=== PATIENT | female | born 1955 | race Caucasian/White ===

== ENCOUNTER 2018-02-05 12:45 | Outpatient (CLI) | payer OTHER ==
[2018-02-05 15:09] LABS: Hemoglobin 13.6 g/dL (12.0-16.0); Mean Corpuscular HGB CONC 34.3 g/dL (32.0-36.0); Mean Corpuscular Hemoglobin 33.5 pg (27.0-31.0); Mean Corpuscular Volume 97.7 fL (78.0-98.0); Mean Platelet Volume 8.6 fL (7.4-10.4); Platelet Count 232 thou/uL (130-400); RBC Distribution Width 11.6 % (11.5-14.5); Red Blood Cell (RBC) Count 4.06 mill/uL (4.20-5.40); White Blood Cell (WBC) Count 7.5 thou/uL (4.8-10.8)
[2018-02-05 15:14] LABS: Bilirubin Negative (Negative); Blood, Urine Negative (Negative); Clarity CLEAR (Clear); Glucose, Urine (Dipstick) Negative (Negative); Leukocyte Negative (Negative); Nitrite Negative (Negative); Protein, Urine (Dipstick) Negative (Neg-Trace); Specific Gravity, Urine 1.008 (1.002-1.036); Urobilinogen 0.2 mg/dL (0.2-1.0); pH, Urine 6.5 (5.0-9.0)
[2018-02-05 15:15] LABS: INR-International Normal Ratio 0.9; Prothrombin Time 12.7 SEC (12.0-14.7)
[2018-02-05 15:16] LABS: PTT 30.3 SEC (22.9-36.1)
[2018-02-05 15:17] LABS: Bacteria/HPF None Seen HPF (None Seen); Hyaline Casts/LPF 0-3 HYALINE CAST LPF (0-3 Hyaline); RBC/HPF 0-3 HPF (0-3); Squamous Epithelial None Seen HPF (0-3); WBC/HPF None Seen HPF (0-3)
[2018-02-05 15:32] LABS: Anion Gap 14 mmol/L (10-20); BUN (Urea Nitrogen) 23 mg/dL (9.8-20.1); Calc. Creatinine Clearance 0 mL/min (70-130); Calcium 9.9 mg/dL (7.8-10.44); Carbon Dioxide 31 mmol/L (23-31); Chloride 98 mmol/L (98-107); Estimated GFR-MDRD 61; Glucose 119 mg/dL (80-115); Sodium 139 mmol/L (136-145)
== END 2018-02-05 12:46 | disposition home or self-care (01) ==
LOC: LABBT 12:45
PROVIDERS: ATTEND Orthopaedic Surgery
DX: Z01.818 Encounter for other preprocedural examination (principal); M16.11 Unilateral primary osteoarthritis, right hip
CPT/HCPCS: 80048; 81001; 85027; 85610; 85730; 86850; 86900; 86901; 87081; 93005; 93010

== ENCOUNTER 2018-02-05 15:15 | Inpatient (IN) | payer OTHER ==
[2018-02-05 13:09] VITALS: BMI 39.1
[2018-02-10] MEDS ORDERED: Vancomycin HCl 1.5 GM in Sodium Chloride 0.9% 250 ML 300 ML IVPB SCH ×2 (06:00→18:00)
[2018-02-10] MEDS ORDERED: Midazolam HCl 2 mg/2 ml Vial ONE (06:19)
[2018-02-10] MEDS ORDERED: Fentanyl 100 MCG/2 ML VIAL ONE (06:19)
[2018-02-10] MEDS ORDERED: CEFAZOLIN/Water 2 GM/20 ML SYRINGE ONE (06:26)
[2018-02-10] MEDS ORDERED: Sodium Chloride 0.9% 100 ML ONE (06:26)
[2018-02-10] MEDS ORDERED: Lidocaine 2% Jelly 5 ML TUBE ONE (07:11)
[2018-02-10] MEDS ORDERED: Ropivacaine 0.2% HCl/PF 20 ML ONE ×2 (07:11→09:21)
[2018-02-10] MEDS ORDERED: Naloxone HCl 0.4 mg/ml Vial IVP PRN (07:15)
[2018-02-10] MEDS ORDERED: Promethazine HCl 25 MG SUPP PR PRN (07:15)
[2018-02-10] MEDS ORDERED: HYDROcodone/Acetaminophen 5/325 mg Tablet PO PRN ×2 (07:15)
[2018-02-10] MEDS ORDERED: Zolpidem Tartrate 5 MG TAB PO PRN ×2 (07:15→10:23)
[2018-02-10] MEDS ORDERED: Ondansetron HCl/PF 4 MG/2 ML Vial IVP PRN ×3 (07:15→10:23)
[2018-02-10] MEDS ORDERED: diphenhydrAMINE 50 MG/ML VIAL IVP PRN (07:15)
[2018-02-10] MEDS ORDERED: Hydrocerin (Eucerin) Cream 120 gm Jar TOP PRN (07:15)
[2018-02-10] MEDS ORDERED: Naloxone HCl 0.4 mg/ml Vial IV PRN (07:15)
[2018-02-10] MEDS ORDERED: diphenhydrAMINE 50 MG/ML VIAL IM PRN (07:15)
[2018-02-10] MEDS ORDERED: Bupivacaine 0.25% 10 ML VIAL EPIDURAL PRN (07:15)
[2018-02-10] MEDS ORDERED: fentaNYL Citrate/PF 1,250 MCG, Bupivacaine 25 ML in Sodium Chloride 0.9% 250 ML 200 ML EPIDURAL SCH (07:15)
[2018-02-10] MEDS ORDERED: diphenhydrAMINE 25 MG CAP PO PRN ×2 (07:15→10:23)
[2018-02-10] MEDS ORDERED: traMADol HCl 50 MG TAB PO PRN ×2 (07:15→10:23)
[2018-02-10] MEDS ORDERED: Promethazine HCl 25 MG/ML VIAL IM PRN ×3 (07:15→10:23)
[2018-02-10] MEDS ORDERED: Phenylephrine HCL 10 MG/ML VIAL ONE (07:17)
[2018-02-10] MEDS ORDERED: Promethazine HCl 25 MG/ML VIAL SLOW IVP PRN (09:29)
[2018-02-10] MEDS ORDERED: Tranexamic Acid 1,000 MG in Sodium Chloride 0.9% 100 ML IVPB SCH (09:45)
[2018-02-10] MEDS ORDERED: CEFAZOLIN/Water 2 GM/20 ML SYRINGE SLOW IVP SCH (10:23)
[2018-02-10] MEDS ORDERED: Acetaminophen 325 MG TAB PO PRN (10:23)
[2018-02-10] MEDS ORDERED: Aspirin 81 mg Enteric Coated Tablet PO SCH ×2 (10:23→11:00)
[2018-02-10] MEDS ORDERED: Multivitamin W/ Minerals 1 TAB PO SCH (10:23)
[2018-02-10] MEDS ORDERED: HYDROcodone/Acetaminophen 10/325 mg Tablet PO PRN ×2 (10:23)
[2018-02-10] MEDS ORDERED: Fentanyl 100 MCG/2 ML VIAL SLOW IVP PRN ×2 (10:23)
[2018-02-10] MEDS ORDERED: Senokot S 8.6-50 MG TAB PO SCH (10:23)
--- NOTE | 2018-02-10 11:12 | RAD ---
RIGHT HIP TWO VIEWS: HISTORY: Postop total hip. COMPARISON: None. FINDINGS: Satisfactory postoperative appearance. Expected postoperative gas and edema. IMPRESSION: Satisfactory postoperative appearance. POS: [facility]
[2018-02-10] MEDS: Sodium Chloride 0.9% 1,000 ML IV SCH ×2 (11:35→23:34)
--- NOTE | 2018-02-10 12:26 | OP ---
DATE OF PROCEDURE: 02/10/2018 PREOPERATIVE DIAGNOSIS: Right hip osteoarthritis. POSTOPERATIVE DIAGNOSIS: Right hip osteoarthritis. PROCEDURE PERFORMED: Right total hip arthroplasty. STAFF: Talat Manuel M.D. HEMODIALYSIS RN: Viktoriya Baeza PA-C ANESTHESIA: General endotracheal intubation with an epidural. ESTIMATED BLOOD LOSS: 250 mL. TOURNIQUET TIME: None. IMPLANTS: A Hubert Accolade TMZF size 4.5, 130 degree angle, Trident acetabular cluster shell 52 mm E, Trident X3 10 degree poly, 36 mm E and a Biolox delta ceramic head, 36 mm -5. ANTIBIOTICS: Ancef 2 grams, vancomycin 1.5, TXA 1 gram. COMPLICATIONS: None. HISTORY OF PRESENT ILLNESS: Ms. Dorman is a 62-year-old female who presented with a right hip osteoa rthritis. The patient states the pain was severe, she could no longer ambulate. The pain was seriou s and she desired surgical intervention. I discussed with the patient the risks and benefits of surg eliceo to include pain, scar, bleeding, infection, damage to vital structures, decreased range of motion or strength, need for further surgical intervention. Damage to vital structures, loss of life or li mb. The patient understood these risks and benefits and elected to proceed. PROCEDURE IN DETAIL: Timeout was completed designating the patient's right lower extremity as the op erative site based on site, consents, markings. The patient's right lower extremity was prepped and draped in sterile fashion. The patient was in lateral decubitus position with bony prominences well padded. After timeout performed procedure began. Again, we began our procedure with a lateral skin incision down through a very deep layer of fat using drills and moderate retractors. The IT band req uired 2 initial incisions for retraction. We came down the patient's gluteus medius. We took down t he gluteus medius tenotomy, found that there was tearing already of the gluteus minimus on the unders urface, which could explain some of the patient's limp. We followed down, excised the patient's caps ule, came down on the patient's neck and dislocated the head, made our femoral cut, removed the head, exposed the acetabulum, removed the labrum. After placing retractors anterior and posterior we ream ed, reamed up to a 52 and placed a 52 mm PSL which was well medialized and well seated, placed our T rident poly rotated in position. We then moved to our femoral neck. I cut a short femoral neck, had about half a fingerbreadth of 5-6 mm to the lesser. I broached up to a 4, trialed and decided to go with a 4.5, I had to place the final stem into position 4.5/-5, reduced the hip. The patient had a good overall range of motion. She did not dislocate. The patient had a good shuck, just some minima l shuck was actually difficult to reduce, had overall good alignment. We then washed. We then close d the gluteus minimus ____ we could distally closed the gluteus medius with #2 Vicryl. Closed the IT band with #2 Vicryl, 2 Quill, 0 Quill. We did 0 Quill, 0 Vicryl subcu to close the fat layers in se quential layer and then placed 0 Quill subcu, 2-0 Quill, and then glue. The patient will be admitted to hospital. She will be followed in-house. We will again discuss with the patient preoperatively the risks and benefits of smoking. She understood the risks and benefits . The patient will be followed in-house per [place] protocol.
[2018-02-10] MEDS: CEFAZOLIN/Water 2 GM/20 ML SYRINGE SLOW IVP SCH ×2 (14:40→21:32)
[2018-02-10] MEDS ORDERED: PHENYLEPHRINE-NS 100 MCG/ML 10 ML SYRINGE ONE (16:53)
[2018-02-10] MEDS ORDERED: PROPOFOL 200 MG/20 ML VIAL ONE (16:53)
[2018-02-10] MEDS ORDERED: Ondansetron HCl/PF 4 MG/2 ML Vial ONE (16:53)
[2018-02-10] MEDS ORDERED: Dexamethasone 20 MG/5 ML VIAL ONE (16:53)
[2018-02-10] MEDS ORDERED: ePHEDrine/0.9% NaCl/PF SYRINGE 50 mg/10 ml ONE (16:53)
[2018-02-10] MEDS ORDERED: Glycopyrrolate 0.2 MG/ML 5 ML SYRINGE ONE (16:53)
[2018-02-10] MEDS: Ferrous Gluconate 324 MG TAB PO SCH (21:31)
[2018-02-10] MEDS: Aspirin 81 mg Enteric Coated Tablet PO SCH (21:31)
[2018-02-10] MEDS: Atorvastatin Calcium 10 MG TAB PO SCH (21:31)
[2018-02-10] MEDS: Senokot S 8.6-50 MG TAB PO SCH (21:31)
--- NOTE | 2018-02-10 22:03 | PDOC.PN ---
- Subjective Encounter Start Date: 02/10/18 Encounter Start Time: 18:30 Patient seen and examined for med mngt. No CP/SOB/N/V/focal deficits. Pain controlled. No other complaints. - Objective MAR Reviewed: Yes Vital Signs & Weight: Vital Signs (12 hours) Temp Pulse Resp BP BP Pulse Ox 02/10/18 20:41 99.2 F 69 18 110/68 95 02/10/18 12:01 97.4 F L 60 16 114/70 98 02/10/18 10:40 97.4 F L 60 16 97/63 98 Weight Weight 235 lb I&O: 02/09/18 02/10/18 02/11/18 06:59 06:59 06:59 Intake Total 1140 Output Total 350 Balance 790 Result Diagrams: 02/11/18 04:47 Additional Labs: Laboratory Tests 02/05/18 14:00 Potassium 4.0 BUN 23 H Creatinine 0.93 EKG Reviewed by me: Yes (SR) Phys Exam - Physical Examination Constitutional: NAD Respiratory: no wheezing, no rhonchi Cardiovascular: RRR, no rub Gastrointestinal: soft, non-tender, positive bowel sounds Musculoskeletal: no edema Neurological: moves all 4 limbs Dx/Plan - Plan PT/OT, DVT proph w/SCDs IMPRESSION: 1. HTN 2. Obesity BMI 39.1 3. Anxiety/Depression 4. CKD 2 5. HLD PLAN: Hold Lisinopril/HCTZ for now Cont Paxil/Statins HH in AM Will follow. Full code. DPOA- spouse. Review of Systems - Review of Systems Respiratory: negative: Cough, Dry, Shortness of Breath, Hemoptysis, SOB with Excertion, Pleuritic Pain, Sputum, Wheezing Cardiovascular: negative: chest pain, palpitations, orthopnea, paroxysmal nocturnal dyspnea, edema, light headedness, other Gastrointestinal: negative: Nausea, Vomiting, Abdominal Pain, Diarrhea, Constipation, Melena, Hematochezia, Other - Medications/Allergies Allergies/Adverse Reactions: Allergies Allergy/AdvReac Type Severity Reaction Status Date / Time ibuprofen [From Motrin] Allergy Mild Verified 02/05/18 13:10 Medications: Current Medications Acetaminophen (Tylenol) 650 mg PO Q4H PRN PRN Reason: CRAW[place]/ T > 101F; Mild Pain (1-3) Hydrocodone Bitart/Acetaminophen ([place] 5/325) 1 tab PO Q4H PRN PRN Reason: Mild Pain 0-3 Hydrocodone Bitart/Acetaminophen ([place] 5/325) 2 tab PO Q4H PRN PRN Reason: For Moderate Pain 4-6 Aspirin (Ecotrin) 81 mg PO BID [facility] Last Admin: 02/10/18 21:31 Dose: 81 mg Atorvastatin Calcium (Lipitor) 10 mg PO HS [facility] Last Admin: 02/10/18 21:31 Dose: 10 mg Diphenhydramine HCl (Benadryl) 25 mg PO Q3H PRN PRN Reason: Itching Diphenhydramine HCl (Benadryl) 25 mg IM Q3H PRN PRN Reason: Itching Diphenhydramine HCl (Benadryl) 25 mg IVP Q3H PRN PRN Reason: Itching Emollient Cream (Hydrocerin Cream) 0 gm TOP PRN PRN PRN Reason: Itching Ferrous Gluconate (Fergon) 324 mg PO BID [facility] Last Admin: 02/10/18 21:31 Dose: 324 mg Fentanyl Citrate 1,250 mcg/Bupivacaine HCl 25 ml/ Sodium Chloride 250 mls @ 0 mls/hr EPIDURAL INF [facility] Sodium Chloride (Normal Saline 0.9%) 1,000 mls @ 100 mls/hr IV .Q10H [facility] Last Admin: 02/10/18 11:35 Dose: Not Given Iron/Minerals/Multivitamins (Theragran M) 1 tab PO DAILY [facility] Miscellaneous Information (Communication Order-Pharmacy) 1 each FS ASDIR [facility] Naloxone HCl (Narcan) 0.2 mg IV Q5MIN PRN PRN Reason: RR <=8 OR OBTUNDED/UNAROUSABLE Naloxone HCl (Narcan) 0.1 mg IVP Q15MIN PRN PRN Reason: URINARY RETENTION Ondansetron HCl (Zofran) 4 mg IVP Q6H PRN PRN Reason: Nausea/Vomiting Paroxetine HCl (Paxil) 20 mg PO DAILY [facility] Promethazine HCl (Phenergan) 12.5 mg IM Q4H PRN PRN Reason: Nausea Promethazine HCl (Phenergan Suppository) 25 mg [place] Q4H PRN PRN Reason: Nausea/Vomiting Senna/Docusate Sodium (Senokot S) 2 tab PO BID [facility] Last Admin: 02/10/18 21:31 Dose: 2 tab Sodium Chloride (Flush - Normal Saline) 10 ml IVF Q12HR [facility] Last Admin: 02/10/18 21:31 Dose: Not Given Sodium Chloride (Flush - Normal Saline) 10 ml IVF PRN PRN PRN Reason: Saline Flush Tramadol HCl (Ultram) 50 mg PO Q6H PRN PRN Reason: Mild Pain 1-3 Tramadol HCl (Ultram) 100 mg PO Q6H PRN PRN Reason: Moderate Pain 4-6 Zolpidem Tartrate (Ambien) 5 mg PO HSPRN PRN PRN Reason: Insomnia
[2018-02-11] MEDS: Sodium Chloride 0.9% 1,000 ML IV SCH ×2 (03:16→16:21)
[2018-02-11 05:16] LABS: Hemoglobin 10.4 g/dL (12.0-16.0); Mean Corpuscular HGB CONC 32.9 g/dL (32.0-36.0); Mean Corpuscular Hemoglobin 32.4 pg (27.0-31.0); Mean Corpuscular Volume 98.5 fL (78.0-98.0); Mean Platelet Volume 8.3 fL (7.4-10.4); Platelet Count 190 thou/uL (130-400); RBC Distribution Width 11.4 % (11.5-14.5); Red Blood Cell (RBC) Count 3.21 mill/uL (4.20-5.40)
[2018-02-11] MEDS: Aspirin 81 mg Enteric Coated Tablet PO SCH ×2 (08:14→20:12)
[2018-02-11] MEDS: Multivitamin W/ Minerals 1 TAB PO SCH (08:14)
[2018-02-11] MEDS: PARoxetine 20 MG TAB PO SCH (08:14)
[2018-02-11] MEDS: Senokot S 8.6-50 MG TAB PO SCH ×2 (08:14→20:12)
[2018-02-11] MEDS: Ferrous Gluconate 324 MG TAB PO SCH ×2 (08:15→20:12)
[2018-02-11] MEDS ORDERED: Non-Formulary Item 1 EACH (Lovastatin [Lovastatin] 40 MG) PO SCH (09:00)
[2018-02-11] MEDS: Atorvastatin Calcium 10 MG TAB PO SCH (20:12)
--- NOTE | 2018-02-11 23:09 | PDOC.PN ---
- Subjective Encounter Start Date: 02/11/18 Encounter Start Time: 15:30 Patient seen and examined for med mgnt. BP on lower side with poor urine output per RN. Some nausea earlier - now resolved. No other complaints. No overnight events - Objective MAR Reviewed: Yes Vital Signs & Weight: Vital Signs (12 hours) Temp Pulse Resp BP Pulse Ox 02/11/18 20:19 98.6 F 84 16 115/73 95 02/11/18 20:00 95 02/11/18 15:36 98.9 F 83 16 108/62 96 Weight Admit Weight 235 lb Weight 235 lb I&O: 02/10/18 02/11/18 02/12/18 06:59 06:59 06:59 Intake Total 2085 1550 Output Total 725 625 Balance 1360 925 Result Diagrams: 02/11/18 04:47 Phys Exam - Physical Examination Constitutional: NAD Respiratory: no wheezing, no rhonchi Cardiovascular: RRR, no rub Gastrointestinal: soft, non-tender, positive bowel sounds Musculoskeletal: no edema Neurological: moves all 4 limbs Dx/Plan - Plan DVT proph w/SCDs IMPRESSION: 1. HTN 2. Obesity BMI 39.1 3. Anxiety/Depression 4. CKD 2 5. HLD PLAN: BMP in AM Gentle IV hydration Lisinopril/HCTZ on hold Cont other meds as below Review of Systems - Review of Systems Cardiovascular: negative: chest pain, palpitations, orthopnea, paroxysmal nocturnal dyspnea, edema, light headedness, other Gastrointestinal: negative: Nausea, Vomiting, Abdominal Pain, Diarrhea, Constipation, Melena, Hematochezia, Other - Medications/Allergies Allergies/Adverse Reactions: Allergies Allergy/AdvReac Type Severity Reaction Status Date / Time ibuprofen [From Motrin] Allergy Mild Verified 02/05/18 13:10 Medications: Current Medications Acetaminophen (Tylenol) 650 mg PO Q4H PRN PRN Reason: [place]/ T > 101F; Mild Pain (1-3) Hydrocodone Bitart/Acetaminophen ([place] 5/325) 1 tab PO Q4H PRN PRN Reason: Mild Pain 0-3 Hydrocodone Bitart/Acetaminophen ([place] 5/325) 2 tab PO Q4H PRN PRN Reason: For Moderate Pain 4-6 Last Admin: 02/11/18 08:15 Dose: 2 tab Aspirin (Ecotrin) 81 mg PO BID [facility] Last Admin: 02/11/18 20:12 Dose: 81 mg Atorvastatin Calcium (Lipitor) 10 mg PO HS [facility] Last Admin: 02/11/18 20:12 Dose: 10 mg Diphenhydramine HCl (Benadryl) 25 mg PO Q3H PRN PRN Reason: Itching Diphenhydramine HCl (Benadryl) 25 mg IM Q3H PRN PRN Reason: Itching Diphenhydramine HCl (Benadryl) 25 mg IVP Q3H PRN PRN Reason: Itching Emollient Cream (Hydrocerin Cream) 0 gm TOP PRN PRN PRN Reason: Itching Ferrous Gluconate (Fergon) 324 mg PO BID [facility] Last Admin: 02/11/18 20:12 Dose: 324 mg Fentanyl Citrate 1,250 mcg/Bupivacaine HCl 25 ml/ Sodium Chloride 250 mls @ 0 mls/hr EPIDURAL INF [facility] Sodium Chloride (Normal Saline 0.9%) 1,000 mls @ 100 mls/hr IV .Q10H [facility] Last Admin: 02/11/18 16:21 Dose: 1,000 mls Iron/Minerals/Multivitamins (Theragran M) 1 tab PO DAILY [facility] Last Admin: 02/11/18 08:14 Dose: 1 tab Miscellaneous Information (Communication Order-Pharmacy) 1 each FS ASDIR [facility] Naloxone HCl (Narcan) 0.2 mg IV Q5MIN PRN PRN Reason: RR <=8 OR OBTUNDED/UNAROUSABLE Naloxone HCl (Narcan) 0.1 mg IVP Q15MIN PRN PRN Reason: URINARY RETENTION Ondansetron HCl (Zofran) 4 mg IVP Q6H PRN PRN Reason: Nausea/Vomiting Last Admin: 02/11/18 10:34 Dose: 4 mg Paroxetine HCl (Paxil) 20 mg PO DAILY [facility] Last Admin: 02/11/18 08:14 Dose: 20 mg Promethazine HCl (Phenergan) 12.5 mg IM Q4H PRN PRN Reason: Nausea Last Admin: 02/11/18 12:03 Dose: 12.5 mg Promethazine HCl (Phenergan Suppository) 25 mg SD Q4H PRN PRN Reason: Nausea/Vomiting Senna/Docusate Sodium (Senokot S) 2 tab PO BID [facility] Last Admin: 02/11/18 20:12 Dose: 2 tab Sodium Chloride (Flush - Normal Saline) 10 ml IVF Q12HR [facility] Last Admin: 02/11/18 22:31 Dose: Not Given Sodium Chloride (Flush - Normal Saline) 10 ml IVF PRN PRN PRN Reason: Saline Flush Tramadol HCl (Ultram) 50 mg PO Q6H PRN PRN Reason: Mild Pain 1-3 Tramadol HCl (Ultram) 100 mg PO Q6H PRN PRN Reason: Moderate Pain 4-6 Zolpidem Tartrate (Ambien) 5 mg PO HSPRN PRN PRN Reason: Insomnia
[2018-02-12] MEDS: Sodium Chloride 0.9% 1,000 ML IV SCH ×2 (03:03→13:42)
[2018-02-12 05:18] LABS: Hemoglobin 9.2 g/dL (12.0-16.0); Mean Corpuscular HGB CONC 32.8 g/dL (32.0-36.0); Mean Corpuscular Hemoglobin 32.3 pg (27.0-31.0); Mean Corpuscular Volume 98.4 fL (78.0-98.0); Mean Platelet Volume 8.5 fL (7.4-10.4); Platelet Count 173 thou/uL (130-400); RBC Distribution Width 11.5 % (11.5-14.5); Red Blood Cell (RBC) Count 2.85 mill/uL (4.20-5.40); White Blood Cell (WBC) Count 11.5 thou/uL (4.8-10.8)
[2018-02-12 05:26] LABS: Anion Gap 9 mmol/L (10-20); BUN (Urea Nitrogen) 20 mg/dL (9.8-20.1); Calc. Creatinine Clearance 126 mL/min (70-130); Calcium 8.8 mg/dL (7.8-10.44); Carbon Dioxide 28 mmol/L (23-31); Chloride 100 mmol/L (98-107); Estimated GFR-MDRD 75; Glucose 113 mg/dL (80-115); Magnesium 1.7 mg/dL (1.6-2.6); Potassium 3.7 mmol/L (3.5-5.1); Sodium 133 mmol/L (136-145)
[2018-02-12] MEDS: Ferrous Gluconate 324 MG TAB PO SCH (08:46)
[2018-02-12] MEDS: traMADol HCl 50 MG TAB PO PRN ×2 (08:46→13:40)
[2018-02-12] MEDS: PARoxetine 20 MG TAB PO SCH (08:47)
[2018-02-12] MEDS: Multivitamin W/ Minerals 1 TAB PO SCH (08:47)
[2018-02-12] MEDS: Senokot S 8.6-50 MG TAB PO SCH (08:47)
[2018-02-12] MEDS: Aspirin 81 mg Enteric Coated Tablet PO SCH (08:47)
[2018-02-12 13:16] VITALS: BP 103/86; TEMP 98.7
== END 2018-02-12 15:15 | disposition home or self-care (01) | DRG 470 ==
LOC: SJJU 02-10 05:32 → SURG A 02-10 10:50
PROVIDERS: ADMIT Orthopaedic Surgery; ATTEND Orthopaedic Surgery
PROC: 0SR904Z Replacement of Right Hip Joint with Ceramic on Polyethylene Synthetic Substitute, Open Approach (ICD-10-PCS; principal; 2018-02-10)
DX: M16.11 Unilateral primary osteoarthritis, right hip (principal); E66.9 Obesity, unspecified; Z68.39 Body mass index [BMI] 39.0-39.9, adult; F41.9 Anxiety disorder, unspecified; F32.9 Major depressive disorder, single episode, unspecified; I12.9 Hypertensive chronic kidney disease with stage 1 through stage 4 chronic kidney disease, or unspecified chronic kidney disease; N18.2 Chronic kidney disease, stage 2 (mild); E78.5 Hyperlipidemia, unspecified
CPT/HCPCS: 36415; 80048; 83735; 85027; 96374; G8978-GP-CL; G8979-GP-CJ; G8987-GO-CJ; G8988-GO-CI; J1100; J1200; J2250; J2370; J2405; J2550; J2704; J2795; J3010; J3370; J3490; J7050